=== PATIENT | female | born 1940 | race Caucasian/White ===

== ENCOUNTER 2021-01-26 18:54 | Outpatient (REF) | payer MEDICARE, MEDICAID, SELFPAY ==
[2021-01-28 16:50] LABS: COVID-19 RT-PCR UVMMC Result Positive (Negative)
== END 2021-01-26 18:55 | disposition home or self-care (01) ==
LOC: NCHCN 18:54
PROVIDERS: PCP Nurse Practitioner Family; Visit Provider Nurse Practitioner Family
DX: Z20.822 Contact with and (suspected) exposure to COVID-19 (principal); J06.9 Acute upper respiratory infection, unspecified
CPT/HCPCS: U0003

== ENCOUNTER 2021-02-11 12:46 | Outpatient (REF) | payer MEDICARE, MEDICAID, SELFPAY ==
[2021-02-11 21:13] LABS: Abs Immature Grans 0.02 10^3/uL (0.0-0.06); Absolute Basophil Count 0.03 10^3/uL (0.0-0.2); Absolute Eosinophil Count 0.01 10^3/uL (0.0-0.7); Absolute Lymphocyte Count 1.15 10^3/uL (1.2-3.4); Absolute Monocyte Count 0.74 10^3/uL (0.1-0.8); Absolute Neutrophil Count 3.14 10^3/uL (1.2-6.7); Basophils % 0.6; Eosinophils % 0.2; HCT 38.4 % (36.0-46.0); HGB 12.3 g/dL (11.2-15.7); Immature Grans % 0.4; Lymphocytes % 22.6; MCH 30.4 pg (27.0-33.0); MPV 10.5 fL (8.0-11.0); Monocytes % 14.5; Neutrophils % 61.7; Nucleated RBC 0 %; Platelet Count 334 10^3/uL (130-400); RBC 4.04 10^6/uL (3.93-5.22); RDW 12.8 % (11.7-14.6); RDW-SD 43.4 fL; WBC 5.09 10^3/uL (4.4-10.8)
[2021-02-11 21:22] LABS: ALT 22 U/L (14-59); AST 19 U/L (15-37); Albumin 3.9 g/dL (3.4-5.0); Alkaline Phosphatase 80 U/L (46-116); Anion Gap 8.6 mmol/L (3-11); BUN 22 mg/dL (7-18); Bilirubin, Total 0.6 mg/dL (0.2-1.0); CO2 27.4 mmol/L (21.0-32.0); Calcium 9.1 mg/dL (8.5-10.1); Chloride 102 mmol/L (98-107); Estimated GFR 53.21 (mL/min/1.73m2); Glucose 85 mg/dL (74-106); Potassium 4.4 mmol/L (3.5-5.1); Sodium 138 mmol/L (136-145); Total Protein 7.5 g/dL (6.4-8.2)
== END 2021-02-11 12:47 | disposition home or self-care (01) ==
LOC: NCHCN 12:46
PROVIDERS: PCP Nurse Practitioner Family; Visit Provider Nurse Practitioner Family
DX: R06.02 Shortness of breath (principal)
CPT/HCPCS: 80053; 85025

== ENCOUNTER 2022-02-16 12:27 | Outpatient (REF) | payer MEDICARE, MEDICAID, SELFPAY ==
[2022-02-16 14:09] LABS: HCT 45.2 % (36.0-46.0); HGB 15.3 g/dL (11.2-15.7); MCH 31.5 pg (27.0-33.0); MCHC 33.8 % (32.0-36.0); MCV 93 fL (80-95); MPV 11.6 fL (8.0-11.0); Platelet Count 197 10^3/uL (130-400); RBC 4.85 10^6/uL (3.93-5.22); RDW-SD 41.4 fL; WBC 4.86 10^3/uL (4.4-10.8)
[2022-02-16 15:05] LABS: Anion Gap 6.5 mmol/L (3-11); BUN 18 mg/dL (7-18); CO2 29.5 mmol/L (21.0-32.0); CREATININE 0.9 mg/dL (0.55-1.02); Calcium 9.4 mg/dL (8.5-10.1); Chloride 105 mmol/L (98-107); Estimated GFR 63.83 (mL/min/1.73m2); Glucose 100 mg/dL (74-106); Potassium 4.7 mmol/L (3.5-5.1); Sodium 141 mmol/L (136-145); TSH (W/Ref FT4) 0.89 uIU/mL (0.36-3.74); Vitamin B12 518 pg/mL (193-986)
== END 2022-02-16 12:28 | disposition home or self-care (01) ==
LOC: NCHCN 12:27
PROVIDERS: PCP Nurse Practitioner Family; Visit Provider Registered Nurse
DX: R41.9 Unspecified symptoms and signs involving cognitive functions and awareness
CPT/HCPCS: 80048; 85027; 82607; 84443

== ENCOUNTER 2023-04-18 14:58 | Outpatient (REF) | payer MEDICARE, MEDICAID, SELFPAY ==
[2023-04-18 15:43] LABS: Abs Immature Grans 0.06 10^3/uL (0.0-0.06); Absolute Basophil Count 0.02 10^3/uL (0.0-0.2); Absolute Eosinophil Count 0.01 10^3/uL (0.0-0.7); Absolute Lymphocyte Count 1.29 10^3/uL (1.2-3.4); Absolute Neutrophil Count 2.53 10^3/uL (1.2-6.7); Basophils % 0.4; Eosinophils % 0.2; HCT 39.1 % (36.0-46.0); HGB 13.3 g/dL (11.2-15.7); Immature Grans % 1.2; Lymphocytes % 26.3; MCH 30.9 pg (27.0-33.0); MCV 91 fL (80-95); MPV 11.6 fL (8.0-11.0); Monocytes % 20.4; Neutrophils % 51.5; Platelet Count 174 10^3/uL (130-400); RDW 12.3 % (11.7-14.6); RDW-SD 40.6 fL; WBC 4.91 10^3/uL (4.4-10.8)
[2023-04-18 16:30] LABS: ALT 21 U/L (14-59); AST 18 U/L (15-37); Albumin 4.2 g/dL (3.4-5.0); Alkaline Phosphatase 78 U/L (46-116); Anion Gap 9.9 mmol/L (3-11); BUN 26 mg/dL (7-18); Bilirubin, Total 0.5 mg/dL (0.2-1.0); CO2 27.1 mmol/L (21.0-32.0); CREATININE 0.9 mg/dL (0.55-1.02); Calcium 9.5 mg/dL (8.5-10.1); Chloride 107 mmol/L (98-107); Estimated GFR 63.43 (mL/min/1.73m2); Glucose 96 mg/dL (74-106); Magnesium 2.4 mg/dL (1.8-2.4); Potassium 4.2 mmol/L (3.5-5.1); Sodium 144 mmol/L (136-145); TSH (W/Ref FT4) 0.98 uIU/mL (0.36-3.74)
[2023-04-18 17:28] LABS: Vitamin D 25 Total 15.8 ng/mL (30-100)
== END 2023-04-18 14:59 | disposition home or self-care (01) ==
LOC: NCHCN 14:58
PROVIDERS: PCP Nurse Practitioner Family; Referring Provider Family Medicine; Visit Provider Family Medicine
DX: R53.83 Other fatigue (principal); E55.9 Vitamin D deficiency, unspecified
CPT/HCPCS: 80053; 82306; 83735; 84443; 85025

== ENCOUNTER 2024-07-18 12:50 | Outpatient (REF) | payer MEDICARE, MEDICAID, SELFPAY ==
[2024-07-18 17:46] LABS: Abs Immature Grans 0.07 10^3/uL (0.0-0.06); Absolute Basophil Count 0.02 10^3/uL (0.0-0.2); Absolute Eosinophil Count 0.02 10^3/uL (0.0-0.7); Absolute Lymphocyte Count 1.15 10^3/uL (1.2-3.4); Absolute Monocyte Count 1.12 10^3/uL (0.1-0.8); Absolute Neutrophil Count 3.19 10^3/uL (1.2-6.7); Basophils % 0.4 %; Eosinophils % 0.4 %; HCT 41.7 % (36.0-46.0); HGB 13.7 g/dL (11.2-15.7); Immature Grans % 1.3 %; Lymphocytes % 20.6 %; MCH 30.4 pg (27.0-33.0); MCHC 32.9 % (32.0-36.0); MCV 93 fL (80-95); MPV 11.9 fL (8.0-11.0); Monocytes % 20.1 %; Neutrophils % 57.2 %; Platelet Count 182 10^3/uL (130-400); RDW 12.7 % (11.7-14.6); RDW-SD 43.5 fL; WBC 5.57 10^3/uL (4.4-10.8)
[2024-07-18 18:25] LABS: ALT 21 U/L (14-59); AST 22 U/L (15-37); Albumin 4.5 g/dL (3.4-5.0); Alkaline Phosphatase 91 U/L (46-116); Anion Gap 7.9 mmol/L (3-11); BUN 20 mg/dL (7-18); Bilirubin, Total 0.6 mg/dL (0.2-1.0); CO2 30.1 mmol/L (21.0-32.0); Calcium 9.5 mg/dL (8.5-10.1); Chloride 104 mmol/L (98-107); Estimated GFR 55.21 (mL/min/1.73m2); Glucose 83 mg/dL (74-106); Potassium 3.9 mmol/L (3.5-5.1); Sodium 142 mmol/L (136-145); TSH 0.87 uIU/mL (0.36-3.74); Total Protein 7.4 g/dL (6.4-8.2)
[2024-07-19 02:52] LABS: FREE T4 0.87 ng/dL (0.76-1.46)
[2024-07-20 04:26] LABS: Hepatitis C Ab w Rflx HCV PCR Negative (Negative)
== END 2024-07-18 12:51 | disposition home or self-care (01) ==
LOC: NCHCN 12:50
PROVIDERS: PCP Family Medicine; Visit Provider Family Medicine
DX: R63.4 Abnormal weight loss (principal); Z11.59 Encounter for screening for other viral diseases
CPT/HCPCS: 80053; 86803; 84439; 84443; 85025

== ENCOUNTER 2024-10-16 15:50 | Outpatient (REF) | payer MEDICARE, MEDICAID, SELFPAY ==
[2024-10-16 14:25] LABS: Abs Immature Grans 0.05 10^3/uL (0.0-0.06); HCT 42.6 % (36.0-46.0); HGB 14.6 g/dL (11.2-15.7); Immature Grans % 1.0 %; MCH 31.3 pg (27.0-33.0); MCHC 34.3 % (32.0-36.0); MCV 91 fL (80-95); MPV 11.7 fL (8.0-11.0); Platelet Count 174 10^3/uL (130-400); RBC 4.67 10^6/uL (3.93-5.22); RDW 12.2 % (11.7-14.6); RDW-SD 40.7 fL; WBC 5.17 10^3/uL (4.4-10.8)
[2024-10-16 14:38] LABS: Iron 145 ug/dL (50-170); Total Iron Binding Capacity 312 ug/dL (250-450); Transferrin Sat 46 % (15-50)
[2024-10-16 15:17] LABS: ALT 19 U/L (14-59); AST 14 U/L (15-37); Albumin 4.6 g/dL (3.4-5.0); Alkaline Phosphatase 81 U/L (46-116); Anion Gap 6.5 mmol/L (3-11); BUN 26 mg/dL (7-18); Bilirubin, Total 0.9 mg/dL (0.2-1.0); CO2 31.5 mmol/L (21.0-32.0); Calcium 9.7 mg/dL (8.5-10.1); Chloride 104 mmol/L (98-107); Estimated GFR 55.21 (mL/min/1.73m2); Ferritin 166 ng/mL (8-252); Folate 19.3 ng/mL (8.6-20.0); Glucose 85 mg/dL (74-106); Potassium 4.6 mmol/L (3.5-5.1); Sodium 142 mmol/L (136-145); Total Protein 7.3 g/dL (6.4-8.2); Vitamin B12 557 pg/mL (193-986)
== END 2024-10-16 15:51 | disposition home or self-care (01) ==
LOC: NCHCN 15:50
PROVIDERS: PCP Family Medicine; Visit Provider Family Medicine
DX: R26.89 Other abnormalities of gait and mobility (principal)
CPT/HCPCS: 80053; 82607; 82728; 82746; 83540; 83550; 85025